=== PATIENT | male | born 1960 | race African-American/Black ===

== ENCOUNTER → 2017-06-07 | Outpatient (CLI) | payer MEDICARE, MEDICAID ==
[~2017-06-07] MED LIST: ABILIFY; BUMETANIDE; CARVEDILOL; CHLORPROMAZINE; FOLIC ACID; KLOR-CON; LOSARTAN; MVI; PANTOPRAZOLE; VIT C; [UNRECOGNIZED DRUG - OTHER]
== END | disposition home or self-care (01) ==
LOC: MRI 13:12
PROVIDERS: ATTEND Neurological Surgery
DX: M50.31 Other cervical disc degeneration, high cervical region (principal); M25.78 Osteophyte, vertebrae; M47.812 Spondylosis without myelopathy or radiculopathy, cervical region
CPT/HCPCS: 72141

== ENCOUNTER → 2017-09-17 | Outpatient (CLI) | payer MEDICARE, MEDICAID | END | disposition home or self-care (01) | LOC: MRI 13:45 | PROVIDERS: ATTEND Neurological Surgery | DX: M47.892 Other spondylosis, cervical region (principal); M50.322 Other cervical disc degeneration at C5-C6 level; M48.02 Spinal stenosis, cervical region | CPT/HCPCS: 72141 ==

== ENCOUNTER 2018-01-02 05:49 | Inpatient (IN) | payer MEDICARE, MEDICAID ==
[~2018-01-02] VITALS: Ht 185.4 cm; Wt 147.6 kg
[~2018-01-02 05:49] MED LIST changes: -ABILIFY; +ABILIFY PO; -BUMETANIDE; +BUMETANIDE PO; -CARVEDILOL; +CARVEDILOL PO; -FOLIC ACID; +FOLIC ACID PO; -KLOR-CON; +KLOR-CON PO; -PANTOPRAZOLE; +PANTOPRAZOLE PO
[2018-01-02] MEDS ORDERED: SODIUM CHLORIDE 0.9% 1000ML BAG (SEPSIS BOLUS) IV ONE (06:30)
[2018-01-02] MEDS ORDERED: SODIUM CHLORIDE 0.9% 2,000 ML IV ONE (06:51)
[2018-01-02 07:10] LABS: BASOPHILS % 0.3 % (0.0-2.0); EOSINOPHILS % 0.4 % (0.0-5.0); HEMATOCRIT. 48.5 % (42.0-52.0); HEMOGLOBIN. 15.9 g/dL (14.0-18.0); LYMPHOCYTES % 8.1 % (20.0-50.0); MEAN CORPUSCULAR HEMOGLOBIN 30.4 pg (28.0-32.0); MEAN CORPUSCULAR VOLUME 92.7 fL (80.0-94.0); MEAN PLATELET VOLUME 9.1 fl (7.4-10.4); NEUTROPHILS % 78.2 % (40.0-76.0); PLATELET 184 x1000/uL (130-400); RED BLOOD CELL COUNT 5.23 mill/uL (4.7-6.1); RED CELL DISTRIBUTION WIDTH 15.3 % (11.6-14.6)
[2018-01-02 07:11] LABS: CHLORIDE 101 mEq/L (98-107)
[2018-01-02 07:12] LABS: INR 1.1; PROTHROMBIN TIME 10.7 sec (9.1-11.1)
[2018-01-02] MEDS ORDERED: PIPERACILLIN/TAZOBACTAM 3.375GM/50ML PREMIX IV ONE (08:15)
[2018-01-02] MEDS ORDERED: PIPERACILLIN/TAZ 3.375G PREMIX 50 ML IV ONE (08:30)
[2018-01-02 09:50] LABS: CLARITY URINE CLEAR (CLEAR); COLOR URINE DARK YELLOW (YELLOW); KETONES URINE TRACE (NEGATIVE); LEUKOCYTE ESTERASE URINE 1+ (NEGATIVE); NITRITE URINE NEGATIVE (NEGATIVE); OCCULT BLOOD URINE NEGATIVE (NEGATIVE); PROTEIN URINE NEGATIVE (NEGATIVE); SPECIFIC GRAVITY URINE 1.026 (1.005-1.030)
[2018-01-02 14:27] VITALS: BP 111/69
[2018-01-02] MEDS ORDERED: ACETAMINOPHEN 325MG TABLET PO PRN (15:15)
[2018-01-02] MEDS ORDERED: LORAZEPAM 2MG/ML CPJ IV PRN (15:15)
[2018-01-02] MEDS ORDERED: LEVOFLOXACIN 500MG PREMIX 100 ML IV SCH (15:15)
[2018-01-02] MEDS ORDERED: INFLUENZA VIRUS VACCINE(AFLURIA) 0.5ML SYR IM ONE (16:30)
[2018-01-02] MEDS ORDERED: PNEUMOCOCCAL 23-VAL P-SAC VAC 0.5 ML IM ONE (16:30)
[2018-01-02] MEDS: METRONIDAZOLE 500 MG PREMIX 100 ML IV SCH (17:07)
[2018-01-02] MEDS: SODIUM CHLORIDE 0.9% 1,000 ML IV SCH (17:07)
[2018-01-02] MEDS ORDERED: LEVOFLOXACIN 500MG PREMIX 100 ML IV NR (18:00)
[2018-01-02 20:00] VITALS: BP 112/74
[2018-01-02] MEDS: FAMOTIDINE 20MG/2ML VIAL IV SCH (21:16)
[2018-01-03] VITALS: BP_SYST 102; BP_SYST 110; BP_DIAS 62; BP_DIAS 74
[2018-01-03] MEDS: METRONIDAZOLE 500 MG PREMIX 100 ML IV SCH ×4 (00:01→23:01)
[2018-01-03] MEDS: SODIUM CHLORIDE 0.9% 1,000 ML IV SCH ×2 (03:42→13:47)
[2018-01-03] MEDS ORDERED: HALO10TA13 PO (06:52)
[2018-01-03] MEDS ORDERED: CLOT15CR5 TP (06:52)
[2018-01-03] MEDS ORDERED: OLAN5TAB26 PO (06:52)
[2018-01-03] MEDS ORDERED: IBUP-2029 PO (06:52)
[2018-01-03] MEDS ORDERED: LEVO50TA8 PO (06:52)
[2018-01-03] MEDS ORDERED: BUME0.5T5 PO (06:52)
[2018-01-03] MEDS ORDERED: OXCA300T31 PO (06:52)
[2018-01-03] MEDS ORDERED: CYCL30DR OP (06:52)
[2018-01-03] MEDS ORDERED: ROPI1TAB3 PO (06:52)
[2018-01-03] MEDS ORDERED: AMAN100T PO (06:52)
[2018-01-03] MEDS ORDERED: MIRA50TA PO (06:52)
[2018-01-03] MEDS ORDERED: CLON1TAB12 PO (06:52)
[2018-01-03] MEDS ORDERED: SIMV20TA6 PO (06:52)
[2018-01-03] MEDS ORDERED: ERYTHROMYCIN OP (06:52)
[2018-01-03] MEDS ORDERED: TRIA1TAB92 PO (06:56)
[2018-01-03 08:00] VITALS: BP 110/76
[2018-01-03 08:25] LABS: BASOPHILS % 0.2 % (0.0-2.0); EOSINOPHILS % 1.6 % (0.0-5.0); HEMATOCRIT. 39.1 % (42.0-52.0); LYMPHOCYTES % 9.8 % (20.0-50.0); MEAN CORPUSCULAR HEMOGLOBIN 30.4 pg (28.0-32.0); MEAN CORPUSCULAR VOLUME 91.7 fL (80.0-94.0); MEAN PLATELET VOLUME 9.1 fl (7.4-10.4); MONOCYTES % 11.2 % (2.0-8.0); NEUTROPHILS % 77.2 % (40.0-76.0); PLATELET 163 x1000/uL (130-400); RED BLOOD CELL COUNT 4.26 mill/uL (4.7-6.1); RED CELL DISTRIBUTION WIDTH 15.1 % (11.6-14.6)
[2018-01-03] MEDS: FAMOTIDINE 20MG/2ML VIAL IV SCH ×2 (08:36→22:51)
[2018-01-03 09:02] LABS: PHOSPHORUS 2.1 mg/dL (2.5-4.9)
[2018-01-03] MEDS ORDERED: POTASSIUM CHLORIDE 20MEQ TABLET SR PO SCH (10:00)
[2018-01-03 12:00] VITALS: BP 149/97
[2018-01-03 16:00] VITALS: BP 138/76
[2018-01-03] MEDS ORDERED: POTASSIUM CHLORIDE 20MEQ TABLET SR PO NR (16:00)
[2018-01-03] MEDS: HALOPERIDOL 5MG TABLET PO SCH (16:06)
[2018-01-03] MEDS ORDERED: MEDICATION NOT ON FORMULARY EA (Haloperidol 10 MG) PO SCH (17:00)
[2018-01-03] MEDS ORDERED: POTASSIUM PHOS,M-BASIC-D-BASIC 15 MMOL in DEXT 5% WATER 245 ML IV NR (17:30)
[2018-01-03] MEDS ORDERED: LEVOFLOXACIN 500MG PREMIX 100 ML IV SCH (18:00)
[2018-01-03 20:00] VITALS: BP 98/72
[2018-01-04] VITALS: BP 99/59
[2018-01-04 04:00] VITALS: BP 99/66
[2018-01-04 07:04] LABS: CHLORIDE 104 mEq/L (98-107)
[2018-01-04 07:10] LABS: PHOSPHORUS 1.7 mg/dL (2.5-4.9)
[2018-01-04 07:12] LABS: HEMATOCRIT. 36.2 % (42.0-52.0); HEMOGLOBIN. 11.9 g/dL (14.0-18.0); MEAN CORPUSCULAR HEMOGLOBIN 30.3 pg (28.0-32.0); MEAN CORPUSCULAR VOLUME 92.1 fL (80.0-94.0); MEAN PLATELET VOLUME 9.1 fl (7.4-10.4); PLATELET 156 x1000/uL (130-400); RED BLOOD CELL COUNT 3.93 mill/uL (4.7-6.1)
[2018-01-04 08:00] VITALS: BP 110/68
[2018-01-04] MEDS: METRONIDAZOLE 500 MG PREMIX 100 ML IV SCH (08:40)
[2018-01-04] MEDS: FAMOTIDINE 20MG/2ML VIAL IV SCH (08:40)
[2018-01-04] MEDS: HALOPERIDOL 5MG TABLET PO SCH ×2 (08:54→17:09)
[2018-01-04 12:00] VITALS: BP 112/62
[2018-01-04] MEDS ORDERED: POTASSIUM CHLORIDE 20MEQ TABLET SR PO SCH (13:45)
[2018-01-04] MEDS ORDERED: POTASSIUM PHOS,M-BASIC-D-BASIC 20 MMOL in DEXT 5% WATER 243.3333 ML IV SCH (15:00)
[2018-01-04] MEDS: METRONIDAZOLE 500MG TABLET PO SCH ×2 (15:36→21:19)
[2018-01-04 16:00] VITALS: BP 102/60
[2018-01-04 20:00] VITALS: BP 125/83
[2018-01-04 20:07] LABS: PLATELET ESTIMATE NORMAL
[2018-01-05] VITALS: BP 116/58
[2018-01-05 04:00] VITALS: BP 129/75
[2018-01-05] MEDS: METRONIDAZOLE 500MG TABLET PO SCH ×2 (06:24→13:11)
[2018-01-05 07:44] LABS: BASOPHILS % 0.6 % (0.0-2.0); EOSINOPHILS % 2.2 % (0.0-5.0); HEMATOCRIT. 38.7 % (42.0-52.0); HEMOGLOBIN. 12.9 g/dL (14.0-18.0); LYMPHOCYTES % 10.8 % (20.0-50.0); MEAN CORPUSCULAR HEMOGLOBIN 30.5 pg (28.0-32.0); MEAN CORPUSCULAR VOLUME 91.5 fL (80.0-94.0); MEAN PLATELET VOLUME 9.3 fl (7.4-10.4); MONOCYTES % 5.8 % (2.0-8.0); NEUTROPHILS % 80.6 % (40.0-76.0); PLATELET 173 x1000/uL (130-400); RED BLOOD CELL COUNT 4.23 mill/uL (4.7-6.1)
[2018-01-05 08:00] VITALS: BP 135/82
[2018-01-05 09:10] LABS: CHLORIDE 103 mEq/L (98-107)
[2018-01-05] MEDS: HALOPERIDOL 5MG TABLET PO SCH (09:10)
[2018-01-05 09:19] LABS: PHOSPHORUS 2.4 mg/dL (2.5-4.9)
[2018-01-05 12:00] VITALS: BP 142/60
[2018-01-05] MEDS ORDERED: POTASSIUM CHLORIDE 20MEQ TABLET SR PO SCH (12:00)
[2018-01-05 16:00] VITALS: BP 150/76
[2018-01-05 16:20] VITALS: BP 150/76
== END 2018-01-05 17:08 | disposition home or self-care (01) | DRG 872 ==
LOC: ER 05:49 → 5WST 10:02 → EDBEDREQSVC 10:04 → EDBEDREQ 10:04 → EDBEDREQTM 10:04 → ENRESERV 12:04
PROVIDERS: ADMIT Internal Medicine; ATTEND Internal Medicine
DX: A41.9 Sepsis, unspecified organism (principal); N17.9 Acute kidney failure, unspecified; A04.72 Enterocolitis due to Clostridium difficile, not specified as recurrent; F20.9 Schizophrenia, unspecified; F31.9 Bipolar disorder, unspecified; F79 Unspecified intellectual disabilities; I10 Essential (primary) hypertension; K80.20 Calculus of gallbladder without cholecystitis without obstruction; Z79.899 Other long term (current) drug therapy
CPT/HCPCS: 36415; 71045; 74176; 80048; 82962; 83605; 83735; 84100; 84145; 84484; 87493; 93005; 93970; 96361; 96365; 99285; J1630; J1956; J2060; J2543; J3490; J7030; J7060; A4315

== ENCOUNTER → 2018-09-30 | Outpatient (CLI) | payer MEDICARE, MEDICAID ==
[~2018-09-30] MED LIST changes: +AMAN100T PO; +BUME0.5T5 PO; -CHLORPROMAZINE; +CLON1TAB12 PO; +CLOT15CR5 TP; +CYCL30DR OP; +ERYTHROMYCIN OP; +HALO10TA13 PO; +IBUP-2029 PO; +LEVO50TA8 PO; -LOSARTAN; +MIRA50TA PO; -MVI; +OLAN5TAB26 PO; +OXCA300T31 PO; +ROPI1TAB3 PO; +SIMV20TA6 PO; +TRIA1TAB92 PO; -VIT C; -[UNRECOGNIZED DRUG - OTHER]
== END | disposition home or self-care (01) ==
LOC: MRI 14:33
PROVIDERS: ATTEND Neurological Surgery
DX: M47.812 Spondylosis without myelopathy or radiculopathy, cervical region (principal); M48.02 Spinal stenosis, cervical region
CPT/HCPCS: 72141

== ENCOUNTER → 2018-10-14 | Outpatient (CLI) | payer MEDICARE, MEDICAID | END | disposition home or self-care (01) | LOC: MRI 14:37 | PROVIDERS: ATTEND Neurological Surgery | DX: M48.061 Spinal stenosis, lumbar region without neurogenic claudication (principal); M51.36 Other intervertebral disc degeneration, lumbar region | CPT/HCPCS: 72148 ==

== ENCOUNTER → 2018-11-11 | Outpatient (CLI) | payer MEDICARE, MEDICAID | END | disposition home or self-care (01) | LOC: MRI 16:03 | PROVIDERS: ATTEND Neurological Surgery | DX: M54.5 Low back pain (principal) | CPT/HCPCS: 72146 ==

== ENCOUNTER 2019-05-22 21:18 | Emergency (ER) | payer MEDICARE, MEDICAID ==
[~2019-05-22] VITALS: Ht 180.3 cm; Wt 113.6 kg
[~2019-05-22 21:18] MED LIST changes: +ROPI1TAB14 PO; -ROPI1TAB3 PO; +SIMV-43 PO; -SIMV20TA6 PO
[2019-05-22] MEDS ORDERED: BACITRACIN 15GM TUBE TOP ONE (23:30)
[2019-05-23] MEDS ORDERED: BACITRACIN ZINC OINT UDPKT TOP SCH (00:30)
[2019-05-23 04:56] VITALS: BP 114/61
== END 2019-05-23 04:57 | disposition home or self-care (01) ==
LOC: ER 21:18
DX: S06.0X9A Concussion with loss of consciousness of unspecified duration, initial encounter (principal); S00.211A Abrasion of right eyelid and periocular area, initial encounter; S00.81XA Abrasion of other part of head, initial encounter; I10 Essential (primary) hypertension; F20.9 Schizophrenia, unspecified; F31.9 Bipolar disorder, unspecified; W01.0XXA Fall on same level from slipping, tripping and stumbling without subsequent striking against object, initial encounter; Y93.89 Activity, other specified; Y92.488 Other paved roadways as the place of occurrence of the external cause
CPT/HCPCS: 99285

== ENCOUNTER 2019-09-29 12:10 | Inpatient (IN) | payer MEDICARE, MEDICAID ==
[~2019-09-29] VITALS: Ht 182.9 cm; Wt 145.1 kg
[2019-09-29] MEDS ORDERED: ACETAMINOPHEN 325MG TABLET PO STA (13:09)
[2019-09-29] MEDS ORDERED: PIPERACILLIN/TAZ 3.375G PREMIX 50 ML IV SCH (13:15)
[2019-09-29] MEDS ORDERED: PIPERACILLIN/TAZOBACTAM 3.375GM/50ML PREMIX IV ONE (13:15)
[2019-09-29] MEDS ORDERED: VANCOMYCIN 1 G PREMIX 200 ML IV SCH (13:15)
[2019-09-29 13:45] LABS: BASOPHILS % 1.1 % (0.0-2.0); HEMATOCRIT. 40.2 % (42.0-52.0); HEMOGLOBIN. 13.3 g/dL (14.0-18.0); MEAN CORPUSCULAR HEMOGLOBIN 29.7 pg (28.0-32.0); MEAN CORPUSCULAR VOLUME 90.1 fL (80.0-94.0); MEAN PLATELET VOLUME 8.8 fl (7.4-10.4); MONOCYTES % 9.8 % (2.0-8.0); NEUTROPHILS % 62.1 % (40.0-76.0); PLATELET 243 x1000/uL (130-400); RED BLOOD CELL COUNT 4.47 mill/uL (4.7-6.1); RED CELL DISTRIBUTION WIDTH 14.4 % (11.6-14.6)
[2019-09-29 13:52] LABS: CHLORIDE 100 mEq/L (98-107)
[2019-09-29 13:54] LABS: INR 1.1; PARTIAL THROMBOPLASTIN TIME 32.8 sec (23.4-31.0); PROTHROMBIN TIME 11.1 sec (9.6-11.0)
[2019-09-29 18:00] VITALS: BP 126/79
[2019-09-29] MEDS ORDERED: DIPHENHYDRAMINE 50MG/ML VIAL IV PRN (18:45)
[2019-09-29] MEDS ORDERED: ENOXAPARIN 40MG/0.4ML SYR SUBCUT SCH (18:45)
[2019-09-29] MEDS ORDERED: ACETAMINOPHEN 325MG TABLET PO PRN ×2 (18:45)
[2019-09-29] MEDS ORDERED: LORAZEPAM 0.5MG TABLET PO PRN (18:45)
[2019-09-29] MEDS ORDERED: ALBUTEROL 6.7GM HFA INHALER ORI PRN (18:45)
[2019-09-29 20:00] VITALS: BP 142/76
[2019-09-29] MEDS ORDERED: POTASSIUM CHLORIDE 20MEQ TABLET SR PO NR (20:00)
[2019-09-29] MEDS: CEFTRIAXONE 1,000 MG in DEXTROSE 5% WATER 50 ML IV SCH (20:28)
[2019-09-29] MEDS: HALOPERIDOL 5MG TABLET PO SCH (20:28)
[2019-09-29] MEDS: ENOXAPARIN 30MG/0.3ML SYR SUBCUT SCH (20:29)
[2019-09-29] MEDS: DEXT 5%/0.45% NACL 1000ML 1,000 ML IV SCH (20:31)
[2019-09-29] MEDS: AZITHROMYCIN 500 MG in DEXT 5% WATER 250 ML IV SCH (21:16)
[2019-09-30] VITALS: BP 126/79
[2019-09-30 04:00] VITALS: BP 98/65
[2019-09-30] MEDS: DEXT 5%/0.45% NACL 1000ML 1,000 ML IV SCH ×2 (05:07→17:23)
[2019-09-30 06:50] LABS: BASOPHILS % 0.8 % (0.0-2.0); EOSINOPHILS % 6.9 % (0.0-5.0); HEMATOCRIT. 35.4 % (42.0-52.0); HEMOGLOBIN. 11.7 g/dL (14.0-18.0); LYMPHOCYTES % 27.8 % (20.0-50.0); MEAN CORPUSCULAR HEMOGLOBIN 29.8 pg (28.0-32.0); MEAN CORPUSCULAR VOLUME 89.8 fL (80.0-94.0); MEAN PLATELET VOLUME 9.3 fl (7.4-10.4); MONOCYTES % 12.7 % (2.0-8.0); NEUTROPHILS % 51.8 % (40.0-76.0); PLATELET 222 x1000/uL (130-400); RED BLOOD CELL COUNT 3.95 mill/uL (4.7-6.1); RED CELL DISTRIBUTION WIDTH 14.1 % (11.6-14.6)
[2019-09-30 07:50] LABS: PHOSPHORUS 3.6 mg/dL (2.5-4.9)
[2019-09-30 08:00] VITALS: BP 121/77
[2019-09-30] MEDS: HALOPERIDOL 5MG TABLET PO SCH ×2 (09:13→21:57)
[2019-09-30] MEDS: ENOXAPARIN 30MG/0.3ML SYR SUBCUT SCH ×2 (09:14→21:57)
[2019-09-30] MEDS ORDERED: POTASSIUM CHLORIDE 20MEQ TABLET SR PO NR ×2 (10:45→15:00)
[2019-09-30 12:00] VITALS: BP 128/77
[2019-09-30 16:00] VITALS: BP 121/80
[2019-09-30 20:00] VITALS: BP 125/70
[2019-09-30] MEDS: CEFTRIAXONE 1,000 MG in DEXTROSE 5% WATER 50 ML IV SCH (20:43)
[2019-09-30] MEDS: AZITHROMYCIN 500 MG in DEXT 5% WATER 250 ML IV SCH (21:58)
[2019-10-01] VITALS: BP 116/78
[2019-10-01 04:00] VITALS: BP 145/83
[2019-10-01] MEDS: DEXT 5%/0.45% NACL 1000ML 1,000 ML IV SCH ×2 (05:58→14:28)
[2019-10-01 06:16] LABS: CHLORIDE 102 mEq/L (98-107)
[2019-10-01 06:19] LABS: BASOPHILS % 1.2 % (0.0-2.0); EOSINOPHILS % 6.2 % (0.0-5.0); HEMOGLOBIN. 12.3 g/dL (14.0-18.0); LYMPHOCYTES % 27.3 % (20.0-50.0); MEAN CORPUSCULAR HEMOGLOBIN 29.4 pg (28.0-32.0); MEAN CORPUSCULAR VOLUME 90.9 fL (80.0-94.0); MONOCYTES % 9.3 % (2.0-8.0); PLATELET 189 x1000/uL (130-400); RED BLOOD CELL COUNT 4.19 mill/uL (4.7-6.1); RED CELL DISTRIBUTION WIDTH 14.3 % (11.6-14.6)
[2019-10-01 06:23] LABS: PHOSPHORUS 2.8 mg/dL (2.5-4.9)
[2019-10-01 08:00] VITALS: BP 133/76
[2019-10-01] MEDS: ENOXAPARIN 30MG/0.3ML SYR SUBCUT SCH ×2 (09:00→20:38)
[2019-10-01] MEDS: HALOPERIDOL 5MG TABLET PO SCH ×2 (09:01→20:38)
[2019-10-01] MEDS ORDERED: POTASSIUM CHLORIDE 20MEQ TABLET SR PO NR (11:00)
[2019-10-01 12:00] VITALS: BP 158/94
[2019-10-01 16:00] VITALS: BP 161/101
[2019-10-01] MEDS: CLONIDINE 0.1MG TABLET PO PRN (18:06)
[2019-10-01] MEDS: CEFTRIAXONE 1,000 MG in DEXTROSE 5% WATER 50 ML IV SCH (19:56)
[2019-10-01 20:00] VITALS: BP 146/88
[2019-10-01] MEDS: AZITHROMYCIN 500 MG in DEXT 5% WATER 250 ML IV SCH (20:38)
[2019-10-01] MEDS ORDERED: ALBUTEROL (0.083%) 2.5MG/3ML NEB HHN PRN (21:15)
[2019-10-02] VITALS: BP 154/84
[2019-10-02 04:00] VITALS: BP 151/83
[2019-10-02] MEDS: DEXT 5%/0.45% NACL 1000ML 1,000 ML IV SCH ×2 (05:31→17:34)
[2019-10-02] MEDS: ONDANSETRON HCL 4MG/2ML INJ IV PRN ×2 (07:45→17:33)
[2019-10-02 08:00] VITALS: BP 149/91
[2019-10-02] MEDS: HALOPERIDOL 5MG TABLET PO SCH ×2 (10:00→22:06)
[2019-10-02] MEDS: PANTOPRAZOLE SODIUM 40 MG/VIAL IV SCH (10:00)
[2019-10-02] MEDS: ENOXAPARIN 30MG/0.3ML SYR SUBCUT SCH ×2 (10:01→22:07)
[2019-10-02] MEDS ORDERED: DIATR MEGLU/DIATRIZOATE SOLN 30ML PO NR (11:00)
[2019-10-02 11:02] LABS: EOSINOPHILS % 3.7 % (0.0-5.0); HEMATOCRIT. 38.6 % (42.0-52.0); HEMOGLOBIN. 12.7 g/dL (14.0-18.0); LYMPHOCYTES % 17.5 % (20.0-50.0); MEAN CORPUSCULAR HEMOGLOBIN 29.7 pg (28.0-32.0); MEAN CORPUSCULAR VOLUME 90.7 fL (80.0-94.0); MONOCYTES % 6.3 % (2.0-8.0); NEUTROPHILS % 71.5 % (40.0-76.0); PLATELET 210 x1000/uL (130-400); RED BLOOD CELL COUNT 4.26 mill/uL (4.7-6.1); RED CELL DISTRIBUTION WIDTH 14.5 % (11.6-14.6)
[2019-10-02 11:16] LABS: CHLORIDE 101 mEq/L (98-107)
[2019-10-02 12:00] VITALS: BP 135/87
[2019-10-02] MEDS ORDERED: NA PHOS,M-B/NA PHOS,DI-BA ENEMA 118ML PR NR (15:45)
[2019-10-02 16:00] VITALS: BP 162/91
[2019-10-02] MEDS ORDERED: MAGNESIUM CITRATE 300ML SOLUTION PO NR (17:00)
[2019-10-02] MEDS: CLONIDINE 0.1MG TABLET PO PRN (17:35)
[2019-10-02 20:00] VITALS: BP 147/78
[2019-10-02] MEDS: CEFTRIAXONE 1,000 MG in DEXTROSE 5% WATER 50 ML IV SCH (22:06)
[2019-10-02] MEDS: AZITHROMYCIN 500 MG in DEXT 5% WATER 250 ML IV SCH (22:06)
[2019-10-02] MEDS: LACTULOSE 20G/30ML UDC PO SCH (22:07)
[2019-10-03] VITALS: BP 129/76
[2019-10-03] MEDS: DEXT 5%/0.45% NACL 1000ML 1,000 ML IV SCH ×3 (02:35→14:34)
[2019-10-03 04:00] VITALS: BP 111/79
[2019-10-03] MEDS: LACTULOSE 20G/30ML UDC PO SCH ×3 (06:00→21:29)
[2019-10-03 08:00] VITALS: BP 113/70
[2019-10-03] MEDS: ENOXAPARIN 30MG/0.3ML SYR SUBCUT SCH ×3 (09:00→21:29)
[2019-10-03] MEDS: HALOPERIDOL 5MG TABLET PO SCH ×2 (09:35→21:28)
[2019-10-03] MEDS: PANTOPRAZOLE SODIUM 40 MG/VIAL IV SCH (09:35)
[2019-10-03 12:00] VITALS: BP 128/73
[2019-10-03 16:00] VITALS: BP 137/63
[2019-10-03 20:00] VITALS: BP 132/80
[2019-10-04] VITALS (7 sets, daily range): BP systolic 108–150; BP diastolic 72–96
[2019-10-04] MEDS: LACTULOSE 20G/30ML UDC PO SCH ×3 (06:39→21:51)
[2019-10-04] MEDS: HALOPERIDOL 5MG TABLET PO SCH ×2 (08:05→20:00)
[2019-10-04] MEDS: PANTOPRAZOLE SODIUM 40 MG/VIAL IV SCH (08:06)
[2019-10-04] MEDS: ENOXAPARIN 30MG/0.3ML SYR SUBCUT SCH ×2 (08:11→20:03)
[2019-10-04] MEDS: DEXT 5%/0.45% NACL 1000ML 1,000 ML IV SCH (10:34)
[2019-10-04] MEDS ORDERED: LORAZEPAM 2MG/ML CPJ IV PRN (11:15)
[2019-10-04] MEDS: CLONIDINE 0.1MG TABLET PO PRN (20:00)
[2019-10-04] MEDS ORDERED: FAMOTIDINE 20MG/2ML VIAL IV SCH (21:00)
[2019-10-05 00:27] VITALS: BP 135/87
[2019-10-05 04:00] VITALS: BP 136/68
[2019-10-05] MEDS: LACTULOSE 20G/30ML UDC PO SCH (05:09)
[2019-10-05] MEDS: DEXT 5%/0.45% NACL 1000ML 1,000 ML IV SCH (05:32)
== END 2019-10-05 08:45 | disposition home or self-care (01) | DRG 602 ==
LOC: ER 12:16 → EDBEDREQTM 15:26 → EDBEDREQ 15:26 → EDBEDREQSVC 15:26 → ENRESERV 17:02 → 7WST 18:15 → 5WST 09-30 16:42
PROVIDERS: ADMIT Internal Medicine; ATTEND Internal Medicine
DX: L03.115 Cellulitis of right lower limb (principal); N17.0 Acute kidney failure with tubular necrosis; Z68.41 Body mass index [BMI] 40.0-44.9, adult; K56.609 Unspecified intestinal obstruction, unspecified as to partial versus complete obstruction; L03.116 Cellulitis of left lower limb; F20.9 Schizophrenia, unspecified; E87.6 Hypokalemia; I10 Essential (primary) hypertension; E11.51 Type 2 diabetes mellitus with diabetic peripheral angiopathy without gangrene; I87.8 Other specified disorders of veins; K44.9 Diaphragmatic hernia without obstruction or gangrene; K56.41 Fecal impaction; L85.3 Xerosis cutis; F29 Unspecified psychosis not due to a substance or known physiological condition; R26.89 Other abnormalities of gait and mobility; Z79.899 Other long term (current) drug therapy; Z03.818 Encounter for observation for suspected exposure to other biological agents ruled out
CPT/HCPCS: 36415; 71045; 74018; 74176; 80048; 80053; 82962; 83605; 83735; 83880; 84100; 84484; 85025; 87635; 93005; 93923; 93970; 96365; 97162; 99285; C9113; J0456; J0696; J1630; J1650; J2060; J2405; J2543; J3370; J7060; Q9963